=== PATIENT | male | born 1970 | race Caucasian/White ===

== ENCOUNTER 2023-07-15 07:22 | Day surgery (SDC) | payer BC ==
[~2023-07-15] VITALS: Ht 200.7 cm; Wt 139.0 kg
[2023-07-15 07:57] VITALS: BP 143/88; PULSE 70; TEMP 97.7
[2023-07-15] MEDS ORDERED: SINGULAIR 110 MG/TAB PO (08:27)
[2023-07-15] MEDS ORDERED: [UNRECOGNIZED DRUG - OTHER] TP (08:28)
[2023-07-15] MEDS ORDERED: LIPITOR 10MG10 MG PO (08:29)
[2023-07-15] MEDS ORDERED: JANUVIA 100MG100 MG PO (08:30)
[2023-07-15] MEDS ORDERED: COZAAR100 MG PO (08:30)
[2023-07-15] MEDS ORDERED: GLUCOPHAGE1000 MG PO (08:31)
[2023-07-15] MEDS ORDERED: TOPROL XL 50MG50 MG PO (08:33)
[2023-07-15] MEDS ORDERED: ZYRTEC 10MG10 MG PO (08:34)
[2023-07-15] MEDS ORDERED: FLONASE NASAL S16 GM NS (08:34)
[2023-07-15] MEDS ORDERED: CEPHALEXIN500 M1 PO (08:48)
[2023-07-15] MEDS ORDERED: NORCO 325 MG-51 TAB PO (08:49)
[2023-07-15 09:24] VITALS: BP 114/72; PULSE 69
--- NOTE | 2023-07-15 09:24 | NUR ---
PATIENT RETURNS TO ROOM 1 PER CART FROM SURGERY AND AROUSES TO VERBAL STIMULI. RIGHT HAND COVERED WITH GAUZE DRESSING. NAILBEDS PINK. ON OXYGEN AT 5L PER MASK. ANA 98.0. SIDERAILS UP X2 AND CALL LIGHT IN REACH. SPOUSE IN ROOM. IV FLUIDS INFUSING. WILL CONTINUE TO MONITOR.
[2023-07-15 09:39] VITALS: BP 108/64; PULSE 57
--- NOTE | 2023-07-15 09:39 | NUR ---
MORE AWAKE AND OXYGEN MASK REMOVED. C/O BEING THRISTY AND GIVEN APPLE JUICE TO DRINK. RIGHT ARM ON PILLOW. SPOUSE IN ROOM. CALL LIGHT IN REACH.
[2023-07-15 09:54] VITALS: BP 115/69; PULSE 63
--- NOTE | 2023-07-15 09:54 | NUR ---
TOLERATED APPLE JUICE AND DENIES PAIN. SPOUSE REMAINS IN THE ROOM.
[2023-07-15 10:09] VITALS: BP 117/68; PULSE 62
--- NOTE | 2023-07-15 10:09 | NUR ---
STATES THAT HE IS READY TO GO HOME.
--- NOTE | 2023-07-15 10:10 | NUR ---
IV DISCONTINUED AND SITE IS FREE OF REDNESS OR SWELLING. PATIENT SITTING ON EDGE OF THE CART AND IS DRESSING SELF WITH ASSIST OF SPOUSE.
--- NOTE | 2023-07-15 10:27 | NUR ---
DISMISSAL INSTRUCTIONS GIVEN AND PATIENT VOICES UNDERSTANDING OF THESE. RIGHT HAND DRESSING REMAINS CLEAN AND DRY.
--- NOTE | 2023-07-15 10:33 | NUR ---
PATIENT DISCHARGED TO HOME DRIVEN BY SPOUSE AND TAKEN TO TRUCK PER WHEELCHAIR. DISMISSAL INSTRUCTIONS IN HAND.
== END 2023-07-15 10:33 | disposition home or self-care (01) ==
LOC: SDCO 07:22
DX: G56.01 Carpal tunnel syndrome, right upper limb (principal); E66.9 Obesity, unspecified; Z68.35 Body mass index [BMI] 35.0-35.9, adult
CPT/HCPCS: J0665; J0690; J2704; J7120